=== PATIENT | male | born 1990 | race Hispanic/Latino ===

== ENCOUNTER 2020-03-09 17:38 | Inpatient (IN) | payer SELFPAY ==
[~2020-03-09] VITALS: Ht 170.2 cm; Wt 71.0 kg
--- NOTE | 2020-03-09 17:44 | NUR ---
PT TO ROOM VIA EMS STRETCHER FOR BEDSIDE TRIAGE
--- NOTE | 2020-03-09 17:58 | NUR ---
RECEIVED FOR CARE,STABLE. ADVISED PLAN OF ACRE. CALL HURST IN REACH.
[2020-03-09 18:09] LABS: HEMATOCRIT 46.1 % (39.0-50.0); HEMOGLOBIN 15.5 g/dl (14.0-18.0); IMMATURE GRANULOCYTES 0.3 % (0.0-5.0); MEAN CORPUSCULAR HGB 28.9 pG CALC (26.0-32.0); MEAN CORPUSCULAR HGB CONC 33.6 g/dL CAL (32.0-36.0); NEUT# 9.75 thou/uL (1.82-7.42); RED BLOOD COUNT 5.36 mill/uL (4.70-6.10); RED CELL DISTRI WIDTH 12.9 % (11.5-15.5)
[2020-03-09 18:28] LABS: ALBUMIN 5.2 g/dL (3.2-5.0); ALKALINE PHOSPHATASE 92 u/l (38-126); ANION GAP 22 (6-22 (CALC)); BILIRUBIN, TOTAL 0.8 mg/dL (0.0-1.4); BUN 12 mg/dL (9-20); BUN/CREATININE RATIO 14 (12-20 (CALC)); CARBON DIOXIDE 24 mmol/l (22-30); CHLORIDE 99 mmol/l (95-108); CREATININE 0.8 mg/dL (0.7-1.3); ETHYL ALCOHOL 259 mg/dl (0-30); GFR > 60 ML/MIN (>=60 (CALC)); GFR FOR AFR.AMER. > 60 ML/MIN (>=60 (CALC)); LIPASE 225 u/l (23-300); POTASSIUM 3.2 mmol/l (3.5-5.1); SGOT/AST 32 u/l (17-59); SODIUM 141 mmol/l (137-146)
--- NOTE | 2020-03-09 18:30 | NUR ---
resting,good spirits.
--- NOTE | 2020-03-09 19:30 | NUR ---
call messer in reach. no distress.
--- NOTE | 2020-03-09 20:30 | NUR ---
States he is feeling better. Call bel in reach,. Resting
[2020-03-09 20:31] LABS: URINE BILIRUBIN - DIPSTICK NEGATIVE (NEGATIVE); URINE BLOOD DIPSTICK SMALL (NEGATIVE); URINE COLOR YELLOW; URINE GLUCOSE - DIPSTICK NEGATIVE (NEGATIVE); URINE KETONE TRACE mg/dL (NEGATIVE); URINE LEUK ESTERASE NEGATIVE (NEGATIVE); URINE NITRITE - DIPSTICK NEGATIVE (Negative); URINE PROTEIN - DIPSTICK 100 mg/dL (NEG-TRACE); URINE UROBILINOGEN - DIPSTICK 0.2 E.U./dL (0.2)
[2020-03-09 20:37] LABS: URINE WBC 0-2 WBC/hpf (0-5)
--- NOTE | 2020-03-09 21:38 | NUR ---
Patient resting quietly. Call messer in reach
--- NOTE | 2020-03-09 22:57 | NUR ---
HAND OFF REPORT RECEIVED FROM NAIDA, PATIENT AWAKE AND ALERT, NO C/O PAIN OR DISCOMFORT, NO S/S OF DISTRESS NOTED, RESPIRATIONS EVEN AND UNLABORED, PLEASANT AND COOPERATIVE AT THI STIME, PO FLUIDS GIVEN.
--- NOTE | 2020-03-09 23:06 | NUR ---
report received from Beverly Lunsford RN
--- NOTE | 2020-03-09 23:06 | NUR ---
HAND OFF REPORT GIVEN TO ADILIA
--- NOTE | 2020-03-09 23:12 | NUR ---
PATIENT TO BE TAKEN TO ICU BED 6 BY MICHELLE
[2020-03-09 23:35] VITALS: BP 163/101
--- NOTE | 2020-03-09 23:36 | NUR ---
male pt received to ICU bed 6 via stretcher accompanied by A MALINA Morrison in stable condition; pt ambulatory to bed with steady gait; admission assessment completed at this time; c/c of vomiting what appears to be blood; pt admits to drinking alcohol since age of 15; pt admits to have stopped drinking for 3 months and then started drinking again; pt states he drunk 5 pints of whiskey; no n/v noted at this time; pt offers no complaints of pain; resp even and unlabored; lungs clear; skin color wnl; ra; hr reg; strong pulses; no edema noted; st on monitor; abd soft with bs present; no bm noted per investment underwriter; pt deny eating for 5 days; pt admits to voiding without complication; no urine to inspect at this time; #20 to rac patent with banana bag infusing; #20 patent to lh with sandostatin gtt at 10.4 ml (50 mcg/hr); #20 started to rh x1 attempt; lines flushed and patent; no redness or edema noted at site; npo maintained; plan of care/ meds explained to pt; call light within reach; will continue to monitor
[2020-03-10] VITALS (14 sets, daily range): BP systolic 144–169; BP diastolic 74–98
--- NOTE | 2020-03-10 02:15 | NUR ---
resting with eyes closed; no apparent distress noted; resp even and unlabored; iv intact; sr on monitor; call light within reach; will continue to monitor
--- NOTE | 2020-03-10 04:00 | NUR ---
awake in bed; ice chips provided; no n/v noted; iv's intact and patent; no redness or edema noted at sites; sr on monitor; pt hands over a empty small 50ml fireball whiskey bottle from his pocket to this sheet writer; pt deny drinking while here, states it was from earlier; pt states he doesn't want the doctor to see it and think he is drinking while here; pt now admits to drinking 5+7 of those little bottles; sheet writer confirms with pt and he admits to 12 bottles total; sheet writer explained to pt importance of telling the truth in regards to alcohol consumption for approp treatment; call light within reach; will continue to monitor
[2020-03-10 05:56] LABS: HEMATOCRIT 41.8 % (39.0-50.0); HEMOGLOBIN 13.7 g/dl (14.0-18.0); IMMATURE GRANULOCYTES 0.3 % (0.0-5.0); MEAN CELL VOLUME 89.3 fL CALC (80.0-100.0); MEAN CORPUSCULAR HGB 29.3 pG CALC (26.0-32.0); MEAN CORPUSCULAR HGB CONC 32.8 g/dL CAL (32.0-36.0); NEUT# 4.99 thou/uL (1.82-7.42); RED BLOOD COUNT 4.68 mill/uL (4.70-6.10); RED CELL DISTRI WIDTH 13.2 % (11.5-15.5)
--- NOTE | 2020-03-10 06:05 | NUR ---
awake in bed; offers no complaints; iv intact and patent; sr on monitor; call light within reach
[2020-03-10 06:08] LABS: ALBUMIN 4.2 g/dL (3.2-5.0); ALKALINE PHOSPHATASE 77 u/l (38-126); ANION GAP 10 (6-22 (CALC)); BILIRUBIN, TOTAL 1.2 mg/dL (0.0-1.4); BUN 10 mg/dL (9-20); BUN/CREATININE RATIO 15 (12-20 (CALC)); CARBON DIOXIDE 28 mmol/l (22-30); CHLORIDE 106 mmol/l (95-108); CREATININE 0.7 mg/dL (0.7-1.3); GFR > 60 ML/MIN (>=60 (CALC)); GFR FOR AFR.AMER. > 60 ML/MIN (>=60 (CALC)); LIPASE 374 u/l (23-300); POTASSIUM 4.1 mmol/l (3.5-5.1); SGOT/AST 28 u/l (17-59); SODIUM 140 mmol/l (137-146); TOTAL PROTEIN 7.3 g/dL (6.3-8.2)
--- NOTE | 2020-03-10 07:15 | NUR ---
REPORT RECEIVED FROM MALINA CLARK. PT RESTING IN BED SEMI FOWLERS; ALERT AND ORIENTED X 3. C/O 6/10 EPIGASTRIC PAIN. RESPIRATIONS EVEN AND UNLABORED ON ROOM AIR. BOWEL SOUNDS ACTIVE; UPPER ABDOMINAL TENDERNESS ON PALPATION. OCTREOTIDE INFUSING AT 50 MCG/HR; PROTONIX GTT INFUSING AT 10 ML/HR; NS 100 ML/HR; IV SITE X 3 APPEAR HEALTHY. POC REVIEWED. PT ENCOURAGED TO VERBALIZE CONCERNS. STATES UNDERSTANDING. SAFETY MEASURES IN PLACE. CALL LIGHT WITHIN REACH.
--- NOTE | 2020-03-10 08:37 | NUR ---
DR. ANGULO AT BEDSIDE.
--- NOTE | 2020-03-10 09:41 | NUR ---
PT AMBULATED TO BATHROOM FOR SMALL YELLOW EMESIS. NOW OFF UNIT VIA STRETCHER WITH OR STAFF FOR EGD PROCEDURE BY DR. MACEDO.
--- NOTE | 2020-03-10 10:06 | NUR ---
SPO2 ON VAPOTHERM 75-80%; PT HAS LABORED BREATHING, BUT IN NO SEVERE DISTRESS. PLACED BACK ON BIPAP WITH 100% FIO2; SPO2 INCREASED TO 92% AT THIS TIME. PT GIVEN SCHEDULED INHALERS AND ABT INFUSING.
--- NOTE | 2020-03-10 12:00 | NUR ---
RETURNED TO UNIT VIA STRETCHER WITH OR STAFF; ALERT AND OREINTED. AMBULATED TO BATHROOM AND BED INDEPENDENTLY. BEDSIDE REPORT RECEIVED FROM MALINA YA. PER EMEKA RAMIREZ TO ADVANCE DIET TOLERATED; PT PROVIDED REGULAR DIET FOR LUNCH. SITTING UP ON EDGE OF BED EATING.
--- NOTE | 2020-03-10 12:44 | NUR ---
VERBAL ORDERS TO STOP DRIPS; PT ONLY CONNECTED TO NS AT 100 ML/HR. EMS SITE REMOVED IN ER.
[2020-03-10] MEDS ORDERED: PROTONIX40 M2 PO (13:42)
--- NOTE | 2020-03-10 14:18 | NUR ---
IV site X 2 discontinued, cath intact. No edema , no redness, voices no discomfort.
--- NOTE | 2020-03-10 14:25 | NUR ---
Discharge instructions given. Patient verbalizes understanding of same. Discharged in stable condition via Ambulatory to Home with staff. All belongings sent with pt.
== END 2020-03-10 14:25 | disposition home or self-care (01) | DRG 368 ==
LOC: ED 17:38 → ED-I 19:33 → ED 22:45 → ICU 22:46
PROVIDERS: Family Medicine; ADMIT Internal Medicine; ATTEND Internal Medicine
PROC: 0DB58ZX Excision of Esophagus, Via Natural or Artificial Opening Endoscopic, Diagnostic (ICD-10-PCS; principal; 2020-03-10)
DX: K22.6 Gastro-esophageal laceration-hemorrhage syndrome (principal); K85.20 Alcohol induced acute pancreatitis without necrosis or infection; K22.11 Ulcer of esophagus with bleeding; F10.129 Alcohol abuse with intoxication, unspecified; K29.71 Gastritis, unspecified, with bleeding; I10 Essential (primary) hypertension; Y90.8 Blood alcohol level of 240 mg/100 ml or more; Z20.822 Contact with and (suspected) exposure to COVID-19
CPT/HCPCS: J2354; J3475; Q9967; S0164

== ENCOUNTER 2020-03-23 11:42 | Emergency (ER) | payer SELFPAY ==
[~2020-03-23] VITALS: Ht 170.2 cm; Wt 68.2 kg
[~2020-03-23 11:42] MED LIST: PROTONIX40 M2 PO
[2020-03-23 12:46] LABS: HEMATOCRIT 43.4 % (39.0-50.0); HEMOGLOBIN 14.8 g/dl (14.0-18.0); IMMATURE GRANULOCYTES 0.2 % (0.0-5.0); MEAN CELL VOLUME 87.3 fL CALC (80.0-100.0); MEAN CORPUSCULAR HGB 29.8 pG CALC (26.0-32.0); MEAN CORPUSCULAR HGB CONC 34.1 g/dL CAL (32.0-36.0); NEUT# 2.43 thou/uL (1.82-7.42); RED BLOOD COUNT 4.97 mill/uL (4.70-6.10); RED CELL DISTRI WIDTH 12.8 % (11.5-15.5)
[2020-03-23 12:47] LABS: URINE BILIRUBIN - DIPSTICK NEGATIVE (NEGATIVE); URINE BLOOD DIPSTICK TRACE-LYSED (NEGATIVE); URINE COLOR YELLOW; URINE GLUCOSE - DIPSTICK NEGATIVE (NEGATIVE); URINE KETONE NEGATIVE (NEGATIVE); URINE LEUK ESTERASE NEGATIVE (NEGATIVE); URINE NITRITE - DIPSTICK NEGATIVE (Negative); URINE PROTEIN - DIPSTICK NEGATIVE (NEG-TRACE); URINE SPECIFIC GRAVITY <=1.005; URINE UROBILINOGEN - DIPSTICK 0.2 E.U./dL (0.2)
[2020-03-23 13:14] LABS: ALKALINE PHOSPHATASE 83 u/l (38-126); ANION GAP 16 (6-22 (CALC)); BUN 4 mg/dL (9-20); BUN/CREATININE RATIO 7 (12-20 (CALC)); CARBON DIOXIDE 27 mmol/l (22-30); CHLORIDE 104 mmol/l (95-108); CREATININE 0.6 mg/dL (0.7-1.3); ETHYL ALCOHOL 261 mg/dl (0-30); GFR > 60 ML/MIN (>=60 (CALC)); GFR FOR AFR.AMER. > 60 ML/MIN (>=60 (CALC)); LIPASE 313 u/l (23-300); POTASSIUM 4.2 mmol/l (3.5-5.1); SGOT/AST 31 u/l (17-59); SODIUM 142 mmol/l (137-146); TOTAL PROTEIN 8.3 g/dL (6.3-8.2)
[2020-03-23 13:17] LABS: BILIRUBIN, TOTAL 0.5 mg/dL (0.0-1.4)
[2020-03-23 18:00] VITALS: BP 141/73
== END 2020-03-23 18:02 | disposition home or self-care (01) | DRG 897 ==
LOC: ED 11:42
PROVIDERS: Emergency Medicine
DX: F10.10 Alcohol abuse, uncomplicated (principal); I10 Essential (primary) hypertension
CPT/HCPCS: S0164

== ENCOUNTER 2020-07-16 01:25 | Emergency (ER) | payer SELFPAY ==
[~2020-07-16] VITALS: Ht 170.2 cm; Wt 68.0 kg
[2020-07-16 01:44] LABS: URINE BILIRUBIN - DIPSTICK NEGATIVE (NEGATIVE); URINE BLOOD DIPSTICK NEGATIVE (NEGATIVE); URINE COLOR YELLOW; URINE GLUCOSE - DIPSTICK NEGATIVE (NEGATIVE); URINE KETONE NEGATIVE (NEGATIVE); URINE LEUK ESTERASE NEGATIVE (NEGATIVE); URINE PROTEIN - DIPSTICK NEGATIVE (NEG-TRACE); URINE UROBILINOGEN - DIPSTICK 0.2 E.U./dL (0.2)
[2020-07-16 01:46] LABS: URINE NITRITE - DIPSTICK NEGATIVE (Negative)
[2020-07-16 01:55] LABS: HEMATOCRIT 42.1 % (39.0-50.0); HEMOGLOBIN 14.3 g/dl (14.0-18.0); IMMATURE GRANULOCYTES 0.3 % (0.0-5.0); MEAN CELL VOLUME 86.4 fL CALC (80.0-100.0); MEAN CORPUSCULAR HGB 29.4 pG CALC (26.0-32.0); NEUT# 6.17 thou/uL (1.82-7.42); RED BLOOD COUNT 4.87 mill/uL (4.70-6.10); RED CELL DISTRI WIDTH 11.7 % (11.5-15.5)
[2020-07-16 02:01] LABS: PROTHROMBIN TIME 10.7 SECONDS (9.0-12.5)
[2020-07-16 02:02] LABS: ALBUMIN 4.3 g/dL (3.2-5.0); ALKALINE PHOSPHATASE 72 u/l (38-126); AMYLASE 75 u/l (30-110); ANION GAP 17 (6-22 (CALC)); BILIRUBIN, TOTAL 0.5 mg/dL (0.0-1.4); BUN 5 mg/dL (9-20); BUN/CREATININE RATIO 9 (12-20 (CALC)); CARBON DIOXIDE 27 mmol/l (22-30); CHLORIDE 99 mmol/l (95-108); CREATININE 0.6 mg/dL (0.7-1.3); ETHYL ALCOHOL 92 mg/dl (0-30); GFR > 60 ML/MIN (>=60 (CALC)); GFR FOR AFR.AMER. > 60 ML/MIN (>=60 (CALC)); LIPASE 157 u/l (23-300); POTASSIUM 3.8 mmol/l (3.5-5.1); SODIUM 139 mmol/l (137-146); TOTAL PROTEIN 7.7 g/dL (6.3-8.2)
[2020-07-16 02:03] LABS: MAGNESIUM 1.3 mg/dL (1.6-2.3); SGOT/AST 63 u/l (17-59)
[2020-07-16] MEDS ORDERED: OMEPRAZOLE20 MG PO (03:52)
[2020-07-16 06:22] VITALS: BP 151/93
== END 2020-07-16 07:47 | disposition home or self-care (01) | DRG 379 ==
LOC: ED 01:25
PROVIDERS: Family Medicine
DX: K29.21 Alcoholic gastritis with bleeding (principal); F10.10 Alcohol abuse, uncomplicated; I10 Essential (primary) hypertension
CPT/HCPCS: Q9967; S0164